=== PATIENT | male | born 2000 | race African-American/Black ===

== ENCOUNTER 2022-07-21 09:56 | Emergency (ER) | payer MEDICAID, OTHER ==
[~2022-07-21] VITALS: Ht 188 cm; Wt 71.0 kg
[2022-07-21 09:58] VITALS: BP 125/72
[2022-07-21] MEDS ORDERED: POLY10DR EACHEYE (10:20)
== END 2022-07-21 11:07 | disposition home or self-care (01) ==
LOC: ER 09:56
DX: H10.9 Unspecified conjunctivitis (principal)
CPT/HCPCS: 99281